=== PATIENT | female | born 1995 | race Caucasian/White ===

== ENCOUNTER 2017-09-25 18:38 | Emergency (ER) | payer MEDICAID, OTHER ==
[2017-09-25] MEDS: IBUPROFEN 800 MG TAB PO (19:40)
[2017-09-25 19:49] LABS: URINE BLOOD (Dip) POC 1+ (NEGATIVE); URINE GLUCOSE (Dip) POC Negative (NEGATIVE); URINE KETONES (Dip) POC Trace (NEGATIVE); URINE LEUKOCYTE EST (Dip) POC Trace (NEGATIVE); URINE NITRITE (Dip) POC Negative (NEGATIVE); URINE TOTAL PROTEIN POC Negative (NEGATIVE)
== END 2017-09-25 21:35 | disposition home or self-care (01) ==
LOC: FTE 18:38
DX: N30.90 Cystitis, unspecified without hematuria (principal); J45.909 Unspecified asthma, uncomplicated
CPT/HCPCS: 76705; 81003; 81025; 99284-25